=== PATIENT | male | born 1945 | race Caucasian/White ===

== ENCOUNTER → 2019-03-14 | Outpatient (CLI) | payer MEDICARE, OTHER ==
[2019-03-14 09:43] LABS: Basophils # (A) 0.1 k/uL (0-0.2); Basophils % (A) 1 %; Eosinophils # (A) 0.3 k/uL (0-0.7); Eosinophils % (A) 5 %; HCT 45.4 % (39.0-53.0); HGB 14.4 gm/dL (13.0-17.5); Lymphocytes # (A) 1.7 k/uL (1.0-4.8); Lymphocytes % (A) 26 %; MCH 27.5 pg (25.0-35.0); MCHC 31.8 g/dL (31.0-37.0); MCV 86.5 fL (80.0-100.0); Mean Platelet Volume 7.4; Monocytes # (A) 0.4 k/uL (0-1.0); Monocytes % (A) 7 %; Neutrophils # (A) 3.8 k/uL (1.3-7.7); Neutrophils % (A) 58 %; Platelet Count 217 k/uL (150-450); RBC 5.25 m/uL (4.30-5.90); RDW 15.2 % (11.5-15.5); WBC 6.6 k/uL (3.8-10.6)
[2019-03-14 17:32] LABS: Albumin 4.5 g/dL (3.80-4.90); Albumin/Globulin Ratio 2.14 (1.60-3.17); Anion Gap 8.4 mmol/L (4.00-12.00); Calcium 9.2 mg/dL (8.7-10.3); Carbon Dioxide 24.6 mmol/L (21.6-31.8); Globulin 2.1 g/dL (1.6-3.3); LDL Cholesterol,Calculated 68.6 mg/dL (0.0-131.0); Potassium 4.4 mmol/L (3.5-5.5); Total Bilirubin 0.8 mg/dL (0.3-1.2); Total Protein 6.6 g/dL (6.2-8.2); VLDL Calculation 22.4 mg/dL (5.00-40.00)
== END | disposition home or self-care (01) ==
LOC: LABWHC1 09:01
PROVIDERS: ATTEND Internal Medicine
DX: I10 Essential (primary) hypertension (principal); E78.2 Mixed hyperlipidemia; Z12.5 Encounter for screening for malignant neoplasm of prostate
CPT/HCPCS: 80061; 80053; 85025; 36415; G0103

== ENCOUNTER → 2019-10-10 | Outpatient (CLI) | payer MEDICARE, OTHER ==
[2019-10-10 11:37] LABS: Basophils % (A) 1 %; Eosinophils # (A) 0.2 k/uL (0-0.7); Eosinophils % (A) 4 %; HCT 43.6 % (39.0-53.0); Lymphocytes # (A) 1.5 k/uL (1.0-4.8); Lymphocytes % (A) 21 %; MCH 29.8 pg (25.0-35.0); MCHC 34.4 g/dL (31.0-37.0); MCV 86.8 fL (80.0-100.0); Mean Platelet Volume 8.4; Monocytes # (A) 0.5 k/uL (0-1.0); Monocytes % (A) 7 %; Neutrophils # (A) 4.5 k/uL (1.3-7.7); Neutrophils % (A) 65 %; Platelet Count 224 k/uL (150-450); RBC 5.02 m/uL (4.30-5.90); RDW 14.1 % (11.5-15.5); WBC 6.9 k/uL (3.8-10.6)
[2019-10-10 17:19] LABS: African American GFR (CKD) 103.4 (60.0-200.0); Albumin 4.5 g/dL (3.80-4.90); Albumin/Globulin Ratio 2.37 (1.60-3.17); Anion Gap 10.3 mmol/L (4.00-12.00); Calcium 9.2 mg/dL (8.7-10.3); Carbon Dioxide 22.7 mmol/L (21.6-31.8); Chol/HDL Ratio 3.34; Globulin 1.9 g/dL (1.6-3.3); LDL Cholesterol,Calculated 69.4 mg/dL (0.0-131.0); Non-African American GFR(CKD) 89.2 (60.0-200.0); Potassium 4.4 mmol/L (3.5-5.5); Total Bilirubin 0.8 mg/dL (0.2-1.2); Total Protein 6.4 g/dL (6.2-8.2); VLDL Calculation 19.6 mg/dL (5.00-40.00)
== END | disposition home or self-care (01) ==
LOC: LABWHC1 10:28
PROVIDERS: ATTEND Internal Medicine
DX: I10 Essential (primary) hypertension (principal); E78.2 Mixed hyperlipidemia; E55.9 Vitamin D deficiency, unspecified
CPT/HCPCS: 36415; 80053; 80061; 82306; 85025

== ENCOUNTER → 2020-04-09 | Outpatient (CLI) | payer MEDICARE, OTHER ==
[2020-04-09 16:48] LABS: Hemoglobin A1C 6.1 % (4.0-6.0)
[2020-04-09 18:08] LABS: African American GFR (CKD) 108.5 (60.0-200.0); Anion Gap 10.9 mmol/L (4.00-12.00); BUN/Creat Ratio 28.57 Ratio (12.00-20.00); Calcium 9.2 mg/dL (8.7-10.3); Carbon Dioxide 21.1 mmol/L (21.6-31.8); Non-African American GFR(CKD) 93.6 (60.0-200.0); Potassium 4.6 mmol/L (3.5-5.5)
== END | disposition home or self-care (01) ==
LOC: LABWHC1 10:08
PROVIDERS: ATTEND Internal Medicine
DX: E11.9 Type 2 diabetes mellitus without complications (principal)
CPT/HCPCS: 36415; 80048; 83036

== ENCOUNTER → 2020-11-19 | Outpatient (CLI) | payer MEDICARE, OTHER ==
--- NOTE | 2020-11-19 12:00 | US ---
EXAMINATION TYPE: US duplex aorta DATE OF EXAM: 11/19/2020 COMPARISON: NONE CLINICAL HISTORY: 74-year-old male Z13.6 screening AAA. HTN controlled with meds. High cholesterol. Hx cardiac disease. TECHNIQUE: Multiple sonographic images of the abdominal aorta are obtained. FINDINGS: Automatic Door Mechanic notes: Limited visualization due to overlying bowel gas and patient body habitus. EXAM MEASUREMENTS: Abdominal Aorta: Proximal: 1.8 x 2.0 cm Mid: 1.6 x 1.6 cm Distal: 1.5 x 1.8 cm Bifurcation: Right- 0.6 x 1.0 cm Left- 0.6 x 1.0 cm Automatic Door Mechanic notes: No AAA visualized at time of scan. Incidental echogenic appearance to the liver suggesting some degree of fatty infiltration. IMPRESSION: No sonographic evidence for AAA. Echogenic appearance to the liver suggests some degree of fatty infiltration.
== END | disposition home or self-care (01) ==
LOC: RADUSWWP 09:32
PROVIDERS: ATTEND Family Medicine
DX: R93.2 Abnormal findings on diagnostic imaging of liver and biliary tract (principal); Z13.6 Encounter for screening for cardiovascular disorders
CPT/HCPCS: 93979

== ENCOUNTER 2021-08-23 09:14 | Day surgery (SDC) | payer MEDICARE, OTHER ==
[2021-08-21 09:10] VITALS: BMI 32.8
[~2021-08-23 09:14] MED LIST: LACTATED RINGERS 1,000 ML IV SCH
[2021-08-23 09:54] VITALS: TEMP 98.2
[2021-08-23] MEDS ORDERED: LIDOCAINE 1% (10MG/ML) FOR IV START INTRADERMA ONE (09:55)
[2021-08-23] MEDS ORDERED: PROPOFOL 10 MG/ML 20 ML VIAL IV ONE (10:51)
--- NOTE | 2021-08-23 11:14 | P.PCN ---
Date of Procedure: 08/23/21 Procedure(s) Performed: Brief history: Patient is a pleasant 75-year-old white male scheduled for an elective upper endoscopy as well as colonoscopy as a part of evaluation of epigastric pain/GERD and prior history of colon polyps. He was started on omeprazole 20 mg daily and symptoms have resolved. Procedure performed: Esophagogastroduodenoscopy with biopsy Colonoscopy with biopsy and snare polypectomy Preoperative diagnosis: Epigastric/GERD History of colon polyps Anesthesia: MAC Procedure: After informed consent was obtained from the patient was brought into the endoscopy unit and IV sedation was administered by anesthesia under continuous monitoring. Initially upper endoscopy was done. The Olympus GF 160 video endoscope was inserted inserted into the mouth and esophagus intubated without any difficulty and was gradually advanced into the stomach and duodenum and carefully examined. The bulb and second part of the duodenum appeared normal. The scope was then withdrawn into the stomach adequately insufflated with air and upon careful examination the antrum had erosions and biopsies were done from this area. The body, cardia and fundus appeared normal. The scope was then withdrawn into the esophagus. The GE junction was located at 40 cm to the incisors. It appeared regular with no erythema erosions or ulcerations. Rest of the esophagus appeared normal. Patient tolerated the procedure well. At this time the patient continued to remain sedation. Initial digital rectal examination was normal. Olympus CF 160 video colonoscope was then inserted into the rectum and gradually advanced to the cecum without any difficulty. Careful examination was performed as the scope was gradually being withdrawn. The prep was excellent. The cecum, ascending colon, transverse colon, appeared normal. In the descending colon there was a 3 mm polyp that was removed by cold biopsy. Scattered sigmoid diverticula . Rest of the descending colon, sigmoid colon and rectum appeared normal. in the proximal rectum there was a 1 cm polyp removed by snare polypectomy Retroflexion was performed in the rectum and no lesions were noted. Patient tolerated the procedure well. Impression: 1. Upper endoscopy revealed scattered erosions and status post biopsy. No evidence of esophagitis or peptic ulcer disease 2. Colonoscopy revealed 3 mm descending colon polyp status post biopsy and 1 cm proximal rectal polyp status post polypectomy Recommendations: Findings of this examination were discussed with the patient as well as his family. He was advised to follow with the biopsy results. He will continue with omeprazole 20 mg daily and follow antireflux measures. the biopsy reveals adenoma he can have a repeat coloscopy in 5 years
[2021-08-23 11:52] VITALS: BP 142/82; PULSE 77; RESP 16
== END 2021-08-23 11:55 | disposition home or self-care (01) ==
LOC: ORWHC2ENDO 09:14
PROVIDERS: ATTEND Internal Medicine Gastroenterology
DX: K21.9 Gastro-esophageal reflux disease without esophagitis (principal); D12.4 Benign neoplasm of descending colon; K29.70 Gastritis, unspecified, without bleeding; K31.9 Disease of stomach and duodenum, unspecified; K62.1 Rectal polyp; Z87.19 Personal history of other diseases of the digestive system; Z98.890 Other specified postprocedural states; I25.10 Atherosclerotic heart disease of native coronary artery without angina pectoris; I10 Essential (primary) hypertension; E78.5 Hyperlipidemia, unspecified; Z95.818 Presence of other cardiac implants and grafts; Z79.82 Long term (current) use of aspirin; Z79.02 Long term (current) use of antithrombotics/antiplatelets
CPT/HCPCS: 88305; 45380; 45385; 43239; J2704

== ENCOUNTER → 2023-06-08 | Outpatient (CLI) | payer MEDICARE, OTHER ==
[2023-06-08 20:05] LABS: ALT 20 U/L (10-49); AST 28 U/L (14-35); Albumin 4.5 d/dL (3.8-4.9); Albumin/Globulin Ratio 1.96 Ratio (1.60-3.17); Alkaline Phosphatase 79 U/L (41-126); BUN/Creat Ratio 19.22 Ratio (12.00-20.00); Blood Urea Nitrogen 17.3 mg/dL (9.0-27.0); Calcium 9.5 mg/dL (8.7-10.3); Carbon Dioxide 24.1 mmol/L (21.6-31.8); Chloride 104 mmol/L (96-109); Chol/HDL Ratio 3.68 Ratio; Globulin 2.3 d/dL (1.6-3.3); Glucose 143 mg/dL (70-110); LDL Cholesterol,Calculated 72.6 mg/dL (0.0-131.0); Potassium 4.9 mmol/L (3.5-5.5); Sodium 140 mmol/L (135-145); Total Bilirubin 0.8 mg/dL (0.3-1.2); Total Protein 6.8 d/dL (6.2-8.2)
== END | disposition home or self-care (01) ==
LOC: LABWHC1 10:25
PROVIDERS: ATTEND Family Medicine
DX: Z12.5 Encounter for screening for malignant neoplasm of prostate (principal); E11.9 Type 2 diabetes mellitus without complications; I10 Essential (primary) hypertension; E78.5 Hyperlipidemia, unspecified
CPT/HCPCS: 80061; 80053; 82043; 82570; 83036; 36415; G0103

== ENCOUNTER 2024-08-30 06:00 | Day surgery (SDC) | payer MEDICARE, OTHER ==
[~2024-08-30 06:00] MED LIST changes: -LACTATED RINGERS 1,000 ML IV SCH; +SODIUM CHLORIDE 0.9% 1,000 ML IV SCH
[2024-08-30] MEDS: IV FLUID CONTINUATION 500 ML IV ONE (07:05)
[2024-08-30] MEDS: SODIUM CHLORIDE 0.9% 500 ML IV SCH (07:05)
[2024-08-30 07:16] VITALS: TEMP 96.8
[2024-08-30 07:22] LABS: INR 1.7 (<1.2); Prothrombin Time 16.9 sec (10.0-12.5)
[2024-08-30 07:23] LABS: Glucose,Whole Blood 157 mg/dL (70-110)
[2024-08-30] MEDS ORDERED: PROPOFOL 10 MG/ML 20 ML VIAL IV ONE (07:26)
[2024-08-30] MEDS ORDERED: LIDOCAINE 1% INJ 10MG/ML (20 ML MDV) ONE (07:26)
[2024-08-30 07:37] LABS: African American GFR (CKD) >90 (>60 ml/min/1.73 sqM); Anion Gap 9 mmol/L; Blood Urea Nitrogen 23 mg/dL (9-20); Calcium 9.2 mg/dL (8.4-10.2); Carbon Dioxide 26 mmol/L (22-30); Chloride 102 mmol/L (98-107); Glucose 150 mg/dL (74-99); Non-African American GFR(CKD) 87 (>60 ml/min/1.73 sqM); Sodium 137 mmol/L (137-145)
--- NOTE | 2024-08-30 07:50 | P.PCN ---
Date of Procedure: 08/30/24 Preoperative Diagnosis: Date of service: August 30, 2024 Procedure: Electrical cardioversion Indication: Persistent atrial fibrillation Clinical information: This is a 78-year-old gentleman with a history of CAD, prior bypass surgery and PCI. He also has type 2 diabetes hypertension hyperlipidemia and paroxysmal atrial fibrillation with good anticoagulation on Coumadin in the last INR in the office 5 days ago was 2.1. He was started on amiodarone 400 mg twice daily. He did not convert to sinus rhythm therefore I advised electrical cardioversion after due discussion with the patient and his and he was brought in for the procedure electively Description: [Under the influence of ultrashort acting intravenous anesthetic agent with the attendance is of the anesthesiologist a single shock of 200 J was delivered with anterior and posterior patches. Patient converted to sinus rhythm. He remained hemodynamically stable and neurologically intact. This was a successful electrical cardioversion:] Result: Successful electrical cardioversion. He is in sinus rhythm hemodynamically stable. He will be discharged once he is fully awake ambulatory and has had a snack. I will see him in the office on the . Same medical regimen including amiodarone Coumadin and small dose of Lasix which I will decrease in the next few days. Discussed with the patient, and daughter in detail. Discharge home later on today
[2024-08-30] MEDS: ENOXAPARIN 40 MG/0.4 ML SYRINGE SQ STA (07:57)
[2024-08-30 09:01] VITALS: RESP 18
[2024-08-30 09:12] VITALS: PULSE 76
[2024-08-30 09:27] VITALS: BP 134/78
== END 2024-08-30 09:37 | disposition home or self-care (01) ==
LOC: OR 06:00
PROVIDERS: ATTEND Internal Medicine Interventional Cardiology
DX: I48.19 Other persistent atrial fibrillation (principal); E11.9 Type 2 diabetes mellitus without complications; E78.5 Hyperlipidemia, unspecified; I10 Essential (primary) hypertension; I25.10 Atherosclerotic heart disease of native coronary artery without angina pectoris; Z79.01 Long term (current) use of anticoagulants; Z79.899 Other long term (current) drug therapy; Z79.84 Long term (current) use of oral hypoglycemic drugs
CPT/HCPCS: 92960; 80048; 85610; J2003; J1650; J2704

== ENCOUNTER → 2025-02-10 | Outpatient (CLI) | payer MEDICARE, OTHER ==
--- NOTE | 2025-02-10 09:12 | US ---
EXAMINATION TYPE: US abdomen comp/pelvis limited DATE OF EXAM: 02/10/2025 COMPARISON: Aorta ultrasound duplex 11/19/2020, abdominal ultrasound 09/06/2010 CLINICAL INDICATION: Male, 79 years old with history of R10.32 LEFT LOWER QUADRANT PAIN; Left flank p ain TECHNIQUE: Grayscale color Doppler imaging of the abdomen and pelvis. FINDINGS: EXAM MEASUREMENTS: Liver Length: 16.8 cm CBD: 0.9 cm Spleen: 10.9 cm Right Kidney: 11.4 x 5.0 x 5.8 cm Left Kidney: 12.5 x 6.7 x 5.7 cm Pancreas: visualized portions wnl, limited by overlying midline bowel gas Liver: attenuating, increased echogenicity Gallbladder: surgically absent CBD: wnl Spleen: wnl Right Kidney: visualized portions wnl, inferior pole limited by overlying bowel gas Left Kidney: 0.9cm stone mid pole Upper IVC: wnl Abd Aorta: proximal portion obscured by overlying midline bowel gas, visualized portions of mid and distal appear wnl Bladder: not fully distended, appears wnl as seen Bilateral Jets Seen right jet seen, left jet not seen The visualized portions of the pancreas are within normal limits. The liver demonstrates diffusely in creased echogenicity without surface nodularity or focal lesion. The common bile duct is within brittney l limits postcholecystectomy. The spleen is within normal limits. No hydronephrosis or solid renal ma ss identified. No right renal calculus. Nonobstructive left renal 0.9 cm midpole calculus. The visual ized portions of the upper IVC and abdominal aorta are within normal limits. The proximal abdominal a elizabeth is obscured by overlying bowel gas. The urinary bladder is not fully distended. There is anechoi c with only the right ureteral jet identified. IMPRESSION: 1. No ultrasound evidence for acute process. 2. Nonobstructive left renal calculus. 3. Hepatic steatosis. [facility], , 02/10/2025 9:10 AM
== END | disposition home or self-care (01) ==
LOC: RADUSWWP 07:59
PROVIDERS: ATTEND Family Medicine
DX: N20.0 Calculus of kidney (principal); K76.0 Fatty (change of) liver, not elsewhere classified
CPT/HCPCS: 76700; 76857

== ENCOUNTER → 2025-02-14 | Outpatient (CLI) | payer MEDICARE, OTHER ==
--- NOTE | 2025-02-14 12:36 | XR ---
EXAMINATION TYPE: XR KUB DATE OF EXAM: 02/14/2025 12:05 PM COMPARISON: None CLINICAL INDICATION: Male, 79 years old with history of N20.0CALCULUS OF KIDNEY; [facility] TECHNIQUE: One radiographic view of the abdomen was obtained. FINDINGS: The bowel gas pattern is nonspecific without dilated loops of small or large bowel. . Fecal material and gas are demonstrated throughout the colon and rectum. There is no evidence for organome chi or pneumoperitoneum. No acute osseous process. No abnormal calcifications are present. Right u pper quadrant cholecystectomy clips. Left renal pelvis which millimeter calculus. Additional left iker al calculi measuring up to 6 mm. IMPRESSION: 1. Left renal calculi with at least one possibly within the left pelvis. 2. Nonspecific bowel gas pattern without radiographic evidence for acute process. [facility], , 02/14/2025 12:34 PM
== END | disposition home or self-care (01) ==
LOC: RADXRMAIN 11:49
PROVIDERS: ATTEND Urology
DX: N20.0 Calculus of kidney (principal)
CPT/HCPCS: 74018

== ENCOUNTER 2025-02-23 09:57 | Day surgery (SDC) | payer MEDICARE, OTHER ==
--- NOTE | 2025-02-22 21:18 | P.GSHP ---
History of Present Illness H&P Date: 02/22/25 Chief Complaint: Left lower back pain The patient is a 79-year-old white male with no prior history of urolithiasis. He has recently experienced left lower back and lower abdominal pain. Ultrasound shows a 9 mm left midpole calculus with no evidence of hydronephrosis. KUB x-ray shows a 12 mm left UPJ calculus as well as a 6 mm left renal calculus. Alternative treatment options were reviewed in detail with the patient and his , namely extracorporal shockwave lithotripsy (ESWL) versus ureteroscopic removal of the calculi. The pros, cons, and risks of each were reviewed, and the patient has elected to undergo ureteroscopic removal of the calculi. - Constitutional Constitutional: Reports chills, Denies fever - Cardiovascular Cardiovascular: Reports high blood pressure, Reports irregular heart beat - Gastrointestinal Gastrointestinal: Denies nausea, Denies vomiting - Genitourinary (Male) Genitourinary: Reports flank pain, Reports kidney stones, Denies dysuria, Denies hematuria Past Medical History Past Medical History: Atrial Fibrillation, Diabetes Mellitus, GERD/Reflux, Hyperlipidemia, Hypertension, Osteoarthritis (OA) Additional Past Medical History / Comment(s): kidney stones History of Any Multi-Drug Resistant Organisms: None Reported Past Surgical History: Cholecystectomy, Coronary Bypass/CABG, Heart Catheterization, Heart Catheterization With Stent, Orthopedic Surgery Additional Past Surgical History / Comment(s): quad bypass, RT shoulder surg. COLONOSCOPY Past Anesthesia/Blood Transfusion Reactions: Postoperative Nausea & Vomiting (PONV) Date of Last Stent Placement:: 09/2015 Smoking Status: Former smoker - Past Family History Mother Family Medical History: No Reported History Medications and Allergies Home Medications Medication Instructions Recorded Confirmed Type Atorvastatin [Lipitor] 80 mg PO HS #60 tab 10/06/15 02/21/25 Rx Nitroglycerin Sl Tabs [Nitrostat] 0.4 mg SUBLINGUAL Q5M PRN #25 tab 10/06/15 02/21/25 Rx Docusate [Colace] 100 mg PO DAILY 08/21/21 02/21/25 History Multivitamins, Thera [Multivitamin 1 tab PO DAILY 08/21/21 02/21/25 History (formulary)] amLODIPine [Norvasc] 5 mg PO QAM 08/21/21 02/21/25 History Amiodarone [Cordarone] 200 mg PO Q48H 08/29/24 02/21/25 History Furosemide [Lasix] 20 mg PO QAM 08/29/24 02/21/25 History Metoprolol Tartrate [Lopressor] 50 mg PO BID 08/29/24 02/21/25 History Potassium Chloride 10 meq PO QAM 08/29/24 02/21/25 History Warfarin [Coumadin] 2.5 mg PO SUTUWETHSA 08/29/24 02/21/25 History Warfarin [Coumadin] 5 mg PO MOFR 08/29/24 02/21/25 History metFORMIN HCL 1,000 mg PO BID 08/29/24 02/21/25 History Vit C (Unk) 1 tab PO DAILY 02/21/25 02/21/25 History Vit D3 (Unk) 1 tab PO DAILY 02/21/25 02/21/25 History Allergies Allergy/AdvReac Type Severity Reaction Status Date / Time Penicillins Allergy Rash/Hives, Verified 02/21/25 13:21 swelling Surgical - Exam - General well developed, well nourished, no distress - Respiratory normal respiratory effort - Psychiatric oriented to time, oriented to person, oriented to place, speech is normal, memory intact Assessment and Plan (1) Calculus of kidney Status: Acute Code(s): N20.0 - CALCULUS OF KIDNEY SNOMED Code(s): 61148338 Plan: Cystoscopy, left ureteroscopy with Holmium laser lithotripsy and stone basketing, left ureteral stent insertion. The procedure has been reviewed in detail with the patient and his . They have been made aware of potential risks, which include anesthesia, bleeding, infection, ureteral injury, and inability to remove all calculi. Given the stone burden, a secondary procedure may be required.
[~2025-02-23 09:57] MED LIST changes: +HYDROmorphone 0.5 MG/0.5 ML SYRINGE IVP PRN; -SODIUM CHLORIDE 0.9% 1,000 ML IV SCH
[2025-02-23] MEDS: IV FLUID CONTINUATION 1,000 ML IV ONE (10:31)
[2025-02-23 10:52] LABS: Glucose,Whole Blood 132 mg/dL (70-110)
[2025-02-23] MEDS: ONDANSETRON 4 MG/2 ML VIAL IVP ONE (10:52)
[2025-02-23] MEDS: LACTATED RINGERS 1,000 ML IV SCH (10:52)
[2025-02-23] MEDS: DEXAMETHASONE SOD PHOSPHATE 4 MG/ML 1 ML VIAL IV ONE (10:52)
[2025-02-23 11:22] LABS: INR 1.7 (<1.2); Prothrombin Time 17.5 sec (10.0-12.5)
[2025-02-23] MEDS ORDERED: NEOSTIGMINE 1 MG/ML 10 ML VIAL ONE (12:39)
[2025-02-23] MEDS ORDERED: LIDOCAINE 2% (PF) 20 MG/ML 5 ML VIAL ONE (12:39)
[2025-02-23] MEDS ORDERED: SUCCINYLCHOLINE CHLORIDE 200 MG/10 ML VIAL IV ONE (12:39)
[2025-02-23] MEDS ORDERED: ROCURONIUM 10 MG/ML (5 ML VIAL) IV ONE (12:39)
[2025-02-23] MEDS ORDERED: GLYCOPYRROLATE 0.2 MG/ML 2 ML VIAL ONE (12:39)
[2025-02-23] MEDS ORDERED: MIDAZOLAM 2 MG/2 ML VIAL ONE (12:39)
[2025-02-23] MEDS ORDERED: fentaNYL (PF) 50 MCG/ML 2 ML AMP ONE (12:39)
[2025-02-23] MEDS ORDERED: PROPOFOL 10 MG/ML 20 ML VIAL IV ONE (12:39)
[2025-02-23] MEDS: ceFAZolin 2 GM in DEXTROSE 5% IN WATER 50 ML IVPB PRN (12:43)
[2025-02-23] MEDS: IOPAMIDOL-370 100ML BTL MISCELLANE ONE (13:18)
[2025-02-23 14:30] VITALS: TEMP 96.9
[2025-02-23 16:18] VITALS: BP 141/65; PULSE 63; RESP 16
--- NOTE | 2025-02-23 21:20 | FL ---
EXAMINATION TYPE: FL guidance operating room DATE OF EXAM: 02/23/2025 FLUOROSCOPY Cysto for left kidney stone/stent insertion 1.06min fluoro time .[id number] Valladares 5 images are submitted. [facility], Workstation: [id number], 02/23/2025 9:18 PM
--- NOTE | 2025-02-24 16:40 | P.OP ---
Date of Procedure: 02/23/25 Preoperative Diagnosis: Left renal calculi Postoperative Diagnosis: Left ureteral calculus, left renal calculi, urethral stricture Procedure(s) Performed: Cystoscopy, direct visual internal ureterotomy (DVIU), left ureteroscopy with Holmium laser lithotripsy and stone basketing, left ureteral stent insertion Anesthesia: JEANETTE Surgeon: Ghanshyam Valladares Estimated Blood Loss (ml): 20 IV fluids (ml): 700 Pathology: other (Left ureteral calculus fragments, sent for chemical analysis) Condition: stable Disposition: PACU Indications for Procedure: The patient is a 79-year-old white male with no prior history of urolithiasis. He has recently experienced left lower back and lower abdominal pain. Ultrasound shows a 9 mm left midpole calculus with no evidence of hydronephrosis. KUB x-ray shows a 12 mm left UPJ calculus as well as a 6 mm left renal calculus. Alternative treatment options were reviewed in detail with the patient and his , namely extracorporal shockwave lithotripsy (ESWL) versus ureteroscopic removal of the calculi. The pros, cons, and risks of each were reviewed, and the patient has elected to undergo ureteroscopic removal of the calculi. Operative Findings: Bulbous urethral stricture. Mid ureteral narrowing. Left proximal ureteral calculus. Left renal calculi. Description of Procedure: The patient was taken to the operating room and placed in the dorsolithotomy position, with legs supported in Shan stirrups. The external genitalia was prepped and draped sterilely. The 30 lens was used to introduce the 21-British Tadeo cystoscopic sheath through the urethra, and a bulbous urethral stricture was identified. Using the optical urethrotome, the stricture was incised at the 12 o'clock position down to healthy tissue, allowing the visual urethrotome to be advanced into the bladder. The prostatic urethra showed evidence of mild lateral lobe enlargement. The bladder was examined in its entirety. Both ureteral orifices were normal anatomic location and configuration. The bladder was moderately trabeculated, with small cellules. No tumors or foreign bodies were seen. A 0.038 inch Glidewire was passed through the visual urethrotome. The left ureteral orifice was cannulated, and the Glidewire was advanced beyond the left proximal ureteral calculus and up to the renal pelvis. The visual urethrotome was removed, and an 09/07-British ureteral access catheter was passed over the wire, up to the mid ureter. The [employer] flexible ureteroscope was then passed through the ureteral access catheter sheath and advanced under direct vision. The caliber of the ureter was narrowed distal to the calculus, and therefore a 15 British balloon dilating catheter was passed over the wire and used to dilate this portion of the ureter. Ureteroscopy was then performed. A longitudinal mucosal split was noted within the ureter. The 272 micron Holmium laser probe was passed through the ureteroscope, and lithotripsy was performed, fragmenting the calculus primarily utilizing a dusting mode. As the calculus fragmented, fragments refluxed into the renal pelvis. Lithotripsy was performed within the renal pelvis, fragmenting the fragments as well as a midpole calculus which was identified. Larger fragments were removed using a 1.9 British 0 tip nitinol basket. It was decided at this time to place a stent and allow time for the smaller calculus fragments to pass. The ureteroscope was slowly withdrawn under direct vision, along with the ureteral access catheter sheath. There was no evidence of ureteral trauma, other than the mucosal split previously m entioned. The Glidewire was passed through the ureteroscope as it was withdrawn, and the Glidewire was subsequently backloaded into the cystoscope, which was passed into the bladder. A 6 British double-J ureteral stent was placed over the wire. Proper stent positioning was verified fluoroscopically and endoscopically. The cystoscope was removed, and an 18 British Booth catheter was placed. The patient tolerated the procedure well and was taken to the recovery room in stable condition. [employer]IC [employer]OCKS Report: Procedure Acuity: Semi-Urgent Stone Size and Location: 12 mm, left proximal ureter Ureteral Dilation: Balloon Dilation Ureteral Access Sheath Used: Yes Stone Sent for Analysis: Yes All Stones/Fragments Were Removed with a Basket: No Complications: No Preoperative Antibiotics Given: Yes Stent Placed: Yes If Stent Placed, Was String Left Attached: No If Stent Placed, When is it to be Removed: 1 month Discharge Medications: Toradol, tamsulosin
== END 2025-02-23 16:19 | disposition home or self-care (01) ==
LOC: OR 09:57
PROVIDERS: ATTEND Urology
DX: N20.2 Calculus of kidney with calculus of ureter (principal); N35.912 Unspecified bulbous urethral stricture, male; I48.91 Unspecified atrial fibrillation; I10 Essential (primary) hypertension; I25.10 Atherosclerotic heart disease of native coronary artery without angina pectoris; Z95.1 Presence of aortocoronary bypass graft; Z95.5 Presence of coronary angioplasty implant and graft; E11.9 Type 2 diabetes mellitus without complications; E78.5 Hyperlipidemia, unspecified; K21.9 Gastro-esophageal reflux disease without esophagitis; M19.90 Unspecified osteoarthritis, unspecified site; Z91.89 Other specified personal risk factors, not elsewhere classified; Z79.01 Long term (current) use of anticoagulants; Z79.84 Long term (current) use of oral hypoglycemic drugs; Z79.899 Other long term (current) drug therapy; Z87.891 Personal history of nicotine dependence; Z88.0 Allergy status to penicillin
CPT/HCPCS: 52356; 52276; 85610; 82365; C2625; C1769; J2250; J0330; J1100; J2710; J0690; J2405; J3010; J2704; Q9967; J2003; J1596

== ENCOUNTER → 2025-05-18 | Outpatient (CLI) | payer MEDICARE, OTHER ==
--- NOTE | 2025-05-18 09:27 | US ---
EXAMINATION TYPE: US kidneys/renal and bladder DATE OF EXAM: 05/18/2025 COMPARISON: CLINICAL INDICATION: Male, 79 years old with history of N20.0 CALCULUS OF KIDNEY; hx left renal stone with stent and removal. No current symptoms. TECHNIQUE: Grayscale imaging of the bilateral kidneys and urinary bladder: FINDINGS: EXAM MEASUREMENTS: Right Kidney: 11.2 x 5.7 x 5.7 cm Left Kidney: 10.3 x 5.3 x 6.0 cm Right Kidney: No hydronephrosis or masses seen Left Kidney: lower pole echogenic focus = 0.7 cm , nonobstructing renal stone Bladder: anechoic, mildly distended Right jet seen IMPRESSION: There is a nonobstructing renal stone inferior pole left kidney. [facility], , 05/18/2025 9:24 AM
== END | disposition home or self-care (01) ==
LOC: RADUSWWP 08:40
PROVIDERS: ATTEND Urology
DX: N20.0 Calculus of kidney (principal)
CPT/HCPCS: 76770